=== PATIENT | female | born 1970 | race Caucasian/White ===

== ENCOUNTER 2016-12-16 09:49 | Day surgery (SDC) | payer OTHER ==
[2016-12-13 09:02] LABS: BLOOD UREA NITROGEN 14 mg/dL (7-18)
[2016-12-13 09:07] LABS: ASPARTATE AMINO TRANSFERASE 9 U/L (15-37)
[~2016-12-16] VITALS: Ht 172.7 cm; Wt 126.0 kg
[~2016-12-16 09:49] MED LIST: EXEN10PE INJ; GLIP10TA13 PO; HYDR-3240 PO; LISI-170 PO; METF10002 PO; SERT50TA5 PO
[2016-12-16 10:13] VITALS: BP 110/75
[2016-12-16] MEDS ORDERED: LACTATED RINGERS 1,000 ML IV SCH (10:31)
[2016-12-16 10:35] LABS: HCG UR OBC PASS
[2016-12-16] MEDS ORDERED: TOBRAMYCIN SULFATE 1.2 GM IMP ONE ×2 (13:17→13:42)
[2016-12-16] MEDS ORDERED: HYDROmorphone 1 MG/ML, 1ML IV PRN (13:30)
[2016-12-16] MEDS ORDERED: OXYcodone 5 MG/5 ML ORAL.SOL UDC PO PRN (13:30)
[2016-12-16] MEDS ORDERED: MEPERIDINE/PF 25MG/0.5ML IVPush PRN (13:30)
[2016-12-16] MEDS ORDERED: ACETAMINOPHEN 325 MG TABLET PO PRN (13:30)
[2016-12-16] MEDS ORDERED: HALOPERIDOL 5 MG/ML IV PRN (13:30)
[2016-12-16] MEDS ORDERED: ALBUTEROL/IPRATROPIUM 2.5MG/0.5MG, 3 ML NPPB PRN (13:30)
[2016-12-16] MEDS ORDERED: FENTANYL PF 100 MCG/2ML ONE ×2 (13:49→15:45)
[2016-12-16] MEDS ORDERED: MIDAZOLAM 1 MG/ML, 2ML ONE (13:49)
[2016-12-16] MEDS ORDERED: ONDANSETRON 2MG/ML, 2ML ONE (14:23)
[2016-12-16] MEDS ORDERED: EPHEDRINE 50 MG/ML, 1ML ONE (14:23)
[2016-12-16] MEDS ORDERED: DEXAMETHASONE 4 MG/ML, 1ML ONE (14:23)
[2016-12-16] MEDS ORDERED: CEFAZOLIN 1,000 MG ONE (14:23)
[2016-12-16] MEDS ORDERED: PROPOFOL 10 MG/ML, 20ML ONE (14:23)
[2016-12-16] MEDS ORDERED: OXYcodone 5 MG/5 ML ORAL.SOL UDC ONE (15:44)
[2016-12-16] MEDS ORDERED: hydrALAzine 20 MG/ML, 1ML ONE (15:46)
[2016-12-16] MEDS: hydrALAzine 20 MG/ML, 1ML IV PRN ×2 (15:48→16:16)
[2016-12-16] MEDS: FENTANYL PF 100 MCG/2ML IV PRN ×2 (15:49→16:04)
[2016-12-16] MEDS ORDERED: METOPROLOL 1 MG/ML, 5ML ONE (16:24)
[2016-12-16] MEDS: METOPROLOL 1 MG/ML, 5ML IV PRN ×5 (16:25→16:54)
== END 2016-12-16 17:52 | disposition home or self-care (01) ==
LOC: OUT 09:49
PROVIDERS: ATTEND Orthopaedic Surgery
DX: E11.610 Type 2 diabetes mellitus with diabetic neuropathic arthropathy (principal); E11.69 Type 2 diabetes mellitus with other specified complication; M86.9 Osteomyelitis, unspecified; E11.621 Type 2 diabetes mellitus with foot ulcer; L97.519 Non-pressure chronic ulcer of other part of right foot with unspecified severity; I10 Essential (primary) hypertension; E66.01 Morbid (severe) obesity due to excess calories; Z68.41 Body mass index [BMI] 40.0-44.9, adult; Z72.89 Other problems related to lifestyle; Z87.891 Personal history of nicotine dependence; J45.909 Unspecified asthma, uncomplicated; J43.9 Emphysema, unspecified; Z82.3 Family history of stroke; Z82.61 Family history of arthritis; Z82.49 Family history of ischemic heart disease and other diseases of the circulatory system
CPT/HCPCS: 11981; 28120; 28122; 36415; 80053; 81025; 82962; 87070; 87075; 87102; 87205; 88304; 88311; 93005; C1713; J0360; J0690; J1100; J2250; J2405; J2704; J3010; J7120; J3260